=== PATIENT | female | born 1960 | race Hispanic/Latino ===

== ENCOUNTER → 2023-09-23 | Outpatient (CLI) | payer BC, OTHER ==
[~2023-09-23] VITALS: Ht 165.1 cm; Wt 56.5 kg
[~2023-09-23] MED LIST: AEC81 PO; ATOR10TA69 PO; BACL10TA PO; CALC-1294 PO; CYCL5TAB PO; DICY20TA3 PO; DILT30TA3 PO; EMPA1TAB19 PO; ERGO500093 PO; FAMO40TA7 PO; FLUT15.845 NS; GABA-529 PO; GINK60TA2 PO; LORA10TA7 PO; MIRT7.5T11 PO; MONT-39 PO; NITR0.4T50 SL; OMEP40CA21 PO; TERB250T89 PO; TIRZ5PEN SQ; URSO300C4 PO; albuterol sulf IH; docusate PO; magnesium PO; mvi PO; neuriva PO
[2023-09-23 14:34] LABS: BASOPHILS # (AUTO) 0.04 K/uL (0.00-0.20); BASOPHILS % (AUTO) 0.7 % (0.0-5.0); EOSINOPHILS # (AUTO) 0.19 K/uL (0.00-0.70); EOSINOPHILS % (AUTO) 3.5 % (0.0-8.0); HEMATOCRIT 36.9 % (36-48); IMMATURE GRANULOCYTE ABSOLUTE 0.01 K/uL (0-1); LYMPHOCYTES # (AUTO) 1.7 K/uL (1.0-4.8); LYMPHOCYTES % (AUTO) 31.1 % (21.0-51.0); MEAN CORPUSCULAR HEMOGLOBIN 31.7 pg (27.0-33.0); MEAN CORPUSCULAR HGB CONC 31.7 g/dL (32.0-36.0); MONOCYTES # (AUTO) 0.5 K/uL (0.1-1.0); MONOCYTES % (AUTO) 8.9 % (3.0-13.0); NEUTROPHILS # (AUTO) 3.1 K/uL (1.8-7.7); NEUTROPHILS % (AUTO) 55.6 % (40.0-77.0); PLATELET COUNT (AUTO) 228 K/uL (130-400); RED BLOOD CELL COUNT(AUTO) 3.69 MIL/uL (4.00-5.50); RED CELL DISTRIBUTION WIDTH 13.3 % (11.0-15.5); WHITE BLOOD COUNT (AUTO) 5.5 K/uL (4.8-10.8)
[2023-09-23 15:06] LABS: CREATININE 0.6 mg/dL (0.5-1.0); POTASSIUM 4.3 mmol/L (3.5-5.1)
[2023-09-23 15:07] LABS: INR <= 0.93 (0.85-1.15); PROTHROMBIN TIME 9.8 SEC (9.6-11.6)
[2023-09-23 15:09] LABS: PARTIAL THROMBOPLASTIN TIME 27.2 SEC (26.3-35.5)
[2023-09-23 15:34] VITALS: BP 109/61; PULSE 75; RESP 15
== END | disposition home or self-care (01) ==
LOC: DAH 10:00 → EDSTATUS 09-27 11:00
PROVIDERS: ATTEND Internal Medicine Cardiovascular Disease
DX: I47.10 Supraventricular tachycardia, unspecified (principal)
CPT/HCPCS: 36415; 80048; 85025; 85610; 85730; 93005

== ENCOUNTER 2023-12-22 06:01 | Day surgery (SDC) | payer BC, OTHER ==
[2023-12-16 09:13] VITALS: BP 103/59; PULSE 71; RESP 16
[2023-12-16 09:21] LABS: BASOPHILS # (AUTO) 0.04 K/uL (0.00-0.20); BASOPHILS % (AUTO) 0.7 % (0.0-5.0); EOSINOPHILS # (AUTO) 0.25 K/uL (0.00-0.70); EOSINOPHILS % (AUTO) 4.2 % (0.0-8.0); HEMATOCRIT 35.3 % (36-48); IMMATURE GRANULOCYTE ABSOLUTE 0.01 K/uL (0-1); LYMPHOCYTES # (AUTO) 1.8 K/uL (1.0-4.8); LYMPHOCYTES % (AUTO) 29.7 % (21.0-51.0); MEAN CORPUSCULAR HEMOGLOBIN 31.8 pg (27.0-33.0); MEAN CORPUSCULAR HGB CONC 32.3 g/dL (32.0-36.0); MEAN CORPUSCULAR VOLUME 98.6 fL (79-99); MONOCYTES # (AUTO) 0.4 K/uL (0.1-1.0); MONOCYTES % (AUTO) 6.3 % (3.0-13.0); NEUTROPHILS # (AUTO) 3.6 K/uL (1.8-7.7); NEUTROPHILS % (AUTO) 58.9 % (40.0-77.0); PLATELET COUNT (AUTO) 224 K/uL (130-400); RED BLOOD CELL COUNT(AUTO) 3.58 MIL/uL (4.00-5.50); RED CELL DISTRIBUTION WIDTH 13.3 % (11.0-15.5)
[2023-12-16 09:34] LABS: CREATININE 0.7 mg/dL (0.5-1.0); POTASSIUM 4.5 mmol/L (3.5-5.1)
[2023-12-16 10:43] LABS: INR 0.92 (0.85-1.15); PARTIAL THROMBOPLASTIN TIME 23.4 SEC (26.3-35.5); PROTHROMBIN TIME 9.8 SEC (9.6-11.6)
[~2023-12-22] VITALS: Ht 167.6 cm; Wt 58.0 kg
[2023-12-22] VITALS (9 sets, daily range): BP systolic 101–117; BP diastolic 47–68; PULSE 67–86; RESP 14–17
[2023-12-22] MEDS: 0.9%NACL 1000ML 1,000 ML IV ONE (07:03)
[2023-12-22] MEDS ORDERED: LIDOCAINE HCL 400MG/20ML VIAL ONE (07:17)
[2023-12-22] MEDS ORDERED: HEPARIN 10,000 UNIT/10ML (1,000 UNIT/ML) VIAL ONE (07:17)
[2023-12-22] MEDS ORDERED: MIDAZOLAM HCL 1 MG/ML 2ML VIAL ONE ×2 (07:41→09:52)
[2023-12-22] MEDS ORDERED: MEPERIDINE-PF 25 MG/ML SYG ONE ×2 (07:41→09:52)
[2023-12-22] MEDS ORDERED: ISOPROTERENOL HCL 0.2 MG/ML AMP/VIAL/BAG ONE (07:45)
[2023-12-22] MEDS ORDERED: ADENOSINE 6MG VIAL IV ONE ×2 (09:53→10:39)
== END 2023-12-22 14:40 | disposition home or self-care (01) ==
LOC: DAH 06:01
PROVIDERS: ATTEND Internal Medicine Cardiovascular Disease
DX: I47.10 Supraventricular tachycardia, unspecified (principal); E11.9 Type 2 diabetes mellitus without complications; E78.5 Hyperlipidemia, unspecified; K21.9 Gastro-esophageal reflux disease without esophagitis; Z79.01 Long term (current) use of anticoagulants; Z88.5 Allergy status to narcotic agent; Z88.8 Allergy status to other drugs, medicaments and biological substances; Z79.82 Long term (current) use of aspirin; Z79.899 Other long term (current) drug therapy; Z86.79 Personal history of other diseases of the circulatory system; Z98.890 Other specified postprocedural states
CPT/HCPCS: 80048; 85025; 85610; 85730; 36415; 93653; 93623; 82948 ×2; C1732 ×2; C1730 ×3; A4649 ×2; J0153 ×2; J3490 ×2; J7030; J1644 ×2; J2250 ×2; J2175 ×2; A4215; A4222; A4221; A4663; A4216; A4606; C1894 ×7; A4223 ×3; 99156; 99157

== ENCOUNTER 2024-09-20 05:56 | Day surgery (SDC) | payer BC, OTHER ==
[2024-09-18 11:59] LABS: BASOPHILS # (AUTO) 0.03 K/uL (0.00-0.20); BASOPHILS % (AUTO) 0.5 % (0.0-5.0); EOSINOPHILS % (AUTO) 3.4 % (0.0-8.0); HEMATOCRIT 33.6 % (36-48); IMMATURE GRANULOCYTE ABSOLUTE 0.01 K/uL (0-1); LYMPHOCYTES # (AUTO) 1.8 K/uL (1.0-4.8); MEAN CORPUSCULAR HEMOGLOBIN 31.6 pg (27.0-33.0); MEAN CORPUSCULAR HGB CONC 32.7 g/dL (32.0-36.0); MEAN CORPUSCULAR VOLUME 96.6 fL (79-99); MONOCYTES # (AUTO) 0.4 K/uL (0.1-1.0); MONOCYTES % (AUTO) 6.1 % (3.0-13.0); NEUTROPHILS # (AUTO) 3.6 K/uL (1.8-7.7); NEUTROPHILS % (AUTO) 59.8 % (40.0-77.0); PLATELET COUNT (AUTO) 202 K/uL (130-400); RED BLOOD CELL COUNT(AUTO) 3.48 MIL/uL (4.00-5.50); RED CELL DISTRIBUTION WIDTH 13.8 % (11.0-15.5); WHITE BLOOD COUNT (AUTO) 5.9 K/uL (4.8-10.8)
[2024-09-18 12:10] LABS: INR <= 0.93 (0.85-1.15); PROTHROMBIN TIME 9.7 SEC (9.6-11.6)
[2024-09-18 12:11] LABS: PARTIAL THROMBOPLASTIN TIME 25.9 SEC (26.3-35.5)
[2024-09-18 12:12] VITALS: BP 117/66; PULSE 71; RESP 18; TEMP 97.7
[2024-09-18 12:34] LABS: CREATININE 0.7 mg/dL (0.5-1.0); POTASSIUM 4.4 mmol/L (3.5-5.1)
[2024-09-20] VITALS (9 sets, daily range): BP systolic 115–138; BP diastolic 53–74; PULSE 73–96; RESP 12–22; TEMP 97.1–97.2
[~2024-09-20] VITALS: Ht 167.6 cm; Wt 59.5 kg
[~2024-09-20 05:56] MED LIST changes: +ACET-2743 PO; -AEC81 PO; +ALBU18HF7 IH; -BACL10TA PO; +CALC-1125 PO; -CALC-1294 PO; -CYCL5TAB PO; +DICY-20 PO; -DICY20TA3 PO; -DILT30TA3 PO; +DOCU100T PO; +FLEC50TA3 PO; +IRON1CAP35 PO; +MAGN250T10 PO; +NITR0.4T SL; -NITR0.4T50 SL; +NITR30OI6 RC; +ORPH100T4 PO; -TERB250T89 PO; +[UNRECOGNIZED DRUG - CODE] PO; -albuterol sulf IH; -docusate PO; -magnesium PO; -mvi PO; -neuriva PO
[2024-09-20] MEDS: 0.9%NACL 1000ML 1,000 ML IV SCH (07:19)
[2024-09-20] MEDS ORDERED: HEParin-NS 1,000 UNIT/500 ML 500 ML IV ONE ×2 (10:30→12:33)
[2024-09-20] MEDS ORDERED: LIDOCAINE HCL 400MG/20ML VIAL ONE ×2 (10:30→10:37)
[2024-09-20] MEDS ORDERED: FENTanyl CITRate PF 50 MCG/1 ML 2ML VIAL ONE ×2 (10:30→12:57)
[2024-09-20] MEDS ORDERED: MIDAZOLAM HCL 1 MG/ML 2ML VIAL ONE ×3 (10:30→12:57)
[2024-09-20] MEDS ORDERED: HEParin 10,000 UNIT/10ML (1,000 UNIT/ML) VIAL ONE (10:30)
[2024-09-20] MEDS ORDERED: ISOPROTERENOL HCL 0.2 MG/ML AMP/VIAL/BAG ONE (11:31)
[2024-09-20] MEDS ORDERED: ADENOSINE 6MG VIAL IV ONE (12:22)
--- NOTE | 2024-09-20 14:49 | EKG ---
[facility] Test Date: 2024-09-20 Test Time: 14:47:34 Pat Name: KAYE LONGO Department: [facility] Room: [facility] Gender: F [employer] Associate: [id number] : 1960 Requested By: EMI FINK Order Number: [id number] Reading MD: Luis Jaquez Measurements Intervals [place] Rate: 79 P: 67 [place]: 192 QRS: 79 QRSD: 114 T: 45 QT: 384 QTc: 440 Interpretive Statements Normal sinus rhythm Right bundle branch block Compared to ECG 09/23/2023 13:10:23 Right bundle-branch block now present Electronically Signed On 09-21-2024 14:48:08 CDT by Luis Jaquez Please click the below link to view image of tracing.
== END 2024-09-20 16:50 | disposition home or self-care (01) ==
LOC: DAH 05:56
PROVIDERS: ATTEND Internal Medicine Cardiovascular Disease
DX: I47.10 Supraventricular tachycardia, unspecified (principal); I25.10 Atherosclerotic heart disease of native coronary artery without angina pectoris; I45.10 Unspecified right bundle-branch block; E11.9 Type 2 diabetes mellitus without complications; E78.5 Hyperlipidemia, unspecified; K21.9 Gastro-esophageal reflux disease without esophagitis; Z88.1 Allergy status to other antibiotic agents; Z88.8 Allergy status to other drugs, medicaments and biological substances; Z79.01 Long term (current) use of anticoagulants; Z79.899 Other long term (current) drug therapy
CPT/HCPCS: 80048; 85025; 85610; 85730; 36415; 93653; 93623; 82948 ×2; 93005; C1894 ×5; C1732 ×3; C1730 ×2; A4649 ×2; C1760 ×3; J0153; J3010 ×2; J3490 ×3; J1644 ×3; J2250 ×3; A4215; A4222; A4221; A4663; A4216; A4606; A4223 ×3; 99156; 99157

== ENCOUNTER 2025-05-22 05:53 | Day surgery (SDC) | payer OTHER ==
[2025-05-17 13:05] LABS: IMMATURE GRANULOCYTE ABSOLUTE 0.01 K/uL (0-1); NUCLEATED RED BLOOD CELLS 0.0 % (0.0-0.19); PLATELET COUNT (AUTO) 238 K/uL (130-400); RED BLOOD CELL COUNT(AUTO) 3.78 MIL/uL (4.00-5.50); RED CELL DISTRIBUTION WIDTH 14.3 % (11.0-15.5); WHITE BLOOD COUNT (AUTO) 5.4 K/uL (4.8-10.8)
[2025-05-17 13:12] LABS: CREATININE 0.8 mg/dL (0.5-1.0); GLOMERULAR FILTR. RATE CALC 82.0 mL/min (>90); GLUCOSE,RANDOM 100.0 mg/dL (70-105); SODIUM SERUM 137.0 mmol/L (136-145); UREA NITROGEN, BLOOD 21.0 mg/dL (7-18)
[2025-05-17 13:17] LABS: INR <= 0.93 (0.85-1.15)
[2025-05-17 13:24] VITALS: BP 114/76; PULSE 71; RESP 13; TEMP 97.9
[2025-05-22] VITALS (15 sets, daily range): BP systolic 109–152; BP diastolic 57–75; PULSE 73–85; RESP 12–20; TEMP 96.7–98
[~2025-05-22] VITALS: Ht 167.6 cm; Wt 58.5 kg
[~2025-05-22 05:53] MED LIST changes: +APIX5TAB PO; +BACL10TA PO; -DOCU100T PO; -FLEC50TA3 PO; +FREM225S SQ; +GINK120C3 PO; -GINK60TA2 PO; -IRON1CAP35 PO; +LINA145C PO; +MIRT-22 PO; -MIRT7.5T11 PO; +MVIT PO; -NITR30OI6 RC; -ORPH100T4 PO; +PROP325C17 PO; +TERB250T89 PO; -[UNRECOGNIZED DRUG - CODE] PO
[2025-05-22] MEDS ORDERED: LIDOCAINE PF 100MG/5ML (2%) SYRINGE 5ML ONE (07:02)
[2025-05-22] MEDS ORDERED: SUCCINYLCHOLINE CHLORIDE 20 MG/ML 10 ML VIAL ONE (07:02)
[2025-05-22] MEDS ORDERED: MIDAZOLAM HCL 1 MG/ML 2ML VIAL ONE (07:02)
[2025-05-22] MEDS: 0.9%NACL 1000ML 1,000 ML IV SCH (07:57)
[2025-05-22] MEDS ORDERED: SUGAMMADEX SODIUM 200 MG/2 ML VIAL IV ONE (10:28)
[2025-05-22] MEDS ORDERED: LIDOCAINE HCL 400MG/20ML VIAL ONE (11:09)
[2025-05-22] MEDS ORDERED: HEParin-NS 1,000 UNIT/500 ML 1,500 ML IV ONE (11:09)
[2025-05-22] MEDS ORDERED: IODIXANOL 320 MG/ML 100 ML VIAL ONE (11:09)
[2025-05-22] MEDS ORDERED: NITROGLYCERIN 50MG VIAL ONE (11:10)
[2025-05-22] MEDS ORDERED: DEXTROSE 50%-WATER 50 ML DISP.SYRIN IV PRN (12:30)
[2025-05-22] MEDS ORDERED: GLUCAGON 1MG KIT 1 MG ML IM PRN (12:30)
--- NOTE | 2025-05-22 12:36 | PRN ---
Procedure Note INDICATION FOR PROCEDURE: [] Left common iliac and common femoral vein DVT Post DVT phlebitic syndrome Probable iliac vein compression PROCEDURE: [] Please see separate anesthesiology note Nine Arabic sheath placement to right internal jugular vein guided by transcutaneous ultrasound Venogram done at level of IVC and SVC Right common iliac vein venogram DATE OF PROCEDURE: May 23, 2025 [employer] OPERATOR: Benjamin OlivierASunita PROCEDURE NOTE: [] After general anesthesia anesthetized the patient and patient has been prepped and draped in sterile fashion with right IJ exposed. Patient then went on to have subcutaneous lidocaine placed into the right IJ region. Next guided by transcutaneous ultrasound micro puncture kit was used to gain access and once free flow blood was seen modified Seldinger technique was utilized to place a 9 Arabic short sheath into the right internal jugular vein. Next multiple attempts were made to try and get wire passed SVC RA but we kept on being directed into the RV. Next a venogram was done at the level of the right atrium basically and we did get a clue to direct our wire into the IVC. This was done and then a long 9 Arabic sheath was then placed into the right IJ at 25 cm in length. Next attempts were made to go into the left common iliac vein but after multiple attempts there was concerns that this may be completely occluded. Next several contrast injections were performed of the right common and external iliac vein and then dragging into the IVC with significant collateral venous filling noted from [id number]. After multiple attempts were made to get into left common iliac vein test was terminated. 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
== END 2025-05-22 15:45 | disposition home or self-care (01) ==
LOC: DAH 05:53
PROVIDERS: ATTEND Internal Medicine Cardiovascular Disease
DX: I87.2 Venous insufficiency (chronic) (peripheral) (principal); I82.402 Acute embolism and thrombosis of unspecified deep veins of left lower extremity; I25.110 Atherosclerotic heart disease of native coronary artery with unstable angina pectoris; I10 Essential (primary) hypertension; E78.5 Hyperlipidemia, unspecified; E11.9 Type 2 diabetes mellitus without complications; K21.9 Gastro-esophageal reflux disease without esophagitis; I47.10 Supraventricular tachycardia, unspecified; Z79.899 Other long term (current) drug therapy
CPT/HCPCS: 80048; 85025; 85610; 85730; 36415; 36012; 75825; 75820; 82948 ×2; A4223 ×3; C1887; C1769; C1894 ×3; C1753; J3010 ×2; J3490 ×5; J0330; J7030; J2003; J1644 ×2; J2250; J2704; J2405; J2371; Q9967; A4215; A4222; A4221; A4663; A4216; A4606